=== PATIENT | female | born 2000 | race Caucasian/White ===

== ENCOUNTER 2024-09-07 08:47 | Emergency (ER) | payer BC, MEDICAID, SELFPAY ==
[2024-09-07 09:16] VITALS: BP 114/77; PULSE 98; RESP 14; TEMP 36.8; O2SAT 96; BMI 29.0
--- NOTE | 2024-09-07 09:58 | USR_ITS ---
PROCEDURE INFORMATION: Exam: US , Transvaginal Exam date and time: 09/07/2024 11:11 AM Age: 22 years old Clinical indication: Lmp or gestational age (in weeks): 6w3d; Antepartum complications; Bleeding; ; Additional info: Pelvic pain and vag bleeding, does not have confirmed iup; Lmp jul 23 LABS AND CLINICAL REPORTS: Gestational age (Established): 6 w 4 d Estimated due date (Established): 04/29/2025 TECHNIQUE: Imaging protocol: Real-time transvaginal obstetrical ultrasound of the maternal pelvis with image documentation. Transvaginal imaging was used for better evaluation of the fetus, adnexa, and/or cervix. COMPARISON: No relevant prior studies available. FINDINGS: Single, live intrauterine gestation with heart rate of 125 bpm. The crown-rump length is 6.4 mm; this corresponds to a gestational age of 6 weeks, 3 days. A yolk sac is seen and measures 2.9 mm. The cervix is closed and measures 3 cm in length. There is trace fluid in the endocervical canal. Small subchorionic hemorrhage measuring 0.4 x 0.4 x 0.8 cm. The right ovary measures 2.5 x 2.1 x 1.5 cm. No suspicious lesion is seen in the right ovary. The left ovary measures 3.3 x 1.9 x 2.3 cm. No suspicious lesion is seen in the left ovary. Doppler interrogation of the ovaries reveals arterial and venous blood flow, bilaterally. There is mild free pelvic fluid. US/US OB <=14 wk fetus w transvag IMPRESSION: 1. Single, live intrauterine gestation with estimated gestational age by measurement of 6 weeks, 3 days. 2. Small subchorionic hemorrhage. Trace fluid in the endocervical canal. 3. Mild free pelvic fluid.
--- NOTE | 2024-09-07 09:59 | W.ED.PREGNAN ---
HPI - General: Chief complaint: Vaginal Bleeding Stated complaint: 6 wks , bleeding & cramping Time Seen by Provider: 09/07/24 09:16 History of Present Illness: 22-year-old female reports she is approximately 6 weeks with an LMP of July 23. She reports she had her first test on August 26, 2024. Patient reports she did have sexual intercourse last night. This morning when she woke up she was having new vaginal bleeding. She reports it is more than a menstrual cycle. It went through her pad and onto her pants. Patient reports she does feel little lightheaded and dizzy. Past medical history is notable for what she believes to be allergic reactions. She periodically gets hives and gets lightheaded. She has had several presyncopal and syncopal episodes related to these episodes. She is wearing a heart monitor from her primary care doctor. She is scheduled to have allergy testing. Patient reports she intermittently has had nausea and vomiting although has not been worse than usual. No fever. No urinary symptoms. Date of Last Menstrual Period: 07/23/24 Associated symptoms: Deny dysuria, headache(s) or syncope Related Data Home Medications Medication Instructions Recorded Confirmed cetirizine 10 mg tablet 10 mg PO DAILY PRN ALLERGIES 09/07/24 09/07/24 famotidine 40 mg tablet 40 mg PO DAILY 09/07/24 09/07/24 fish oil-vit E-fat acids 1 cap PO DAILY 09/07/24 09/07/24 comb.5-herbal comb. 137 400 mg-5 unit capsule (Flax, Fish and Borage Oil) vitamin with calcium 1 tab PO DAILY 09/07/24 09/07/24 no.72-iron 27 mg-folic acid 1 mg tablet ( Vitamins Plus Low Iron) sucralfate 1 gram tablet 1 g PO QID 09/07/24 09/07/24 Allergies Allergy/AdvReac Type Severity Reaction Status Date / Time No Known Allergies Allergy Verified 09/07/24 09:26 Review of Systems General: Reports: 10 or more systems reviewed and unremarkable except in HPI and below Const: Denies: fever(s), chills or body aches Eyes: Reports: change in vision ENMT: Denies: throat pain Card: Denies: chest pain, edema or syncope Resp: Denies: dyspnea or productive cough GI: Denies: diarrhea : Denies: flank pain, dysuria or urinary frequency Musc: Denies: neck pain, back pain, extremity pain or extremity swelling Skin/Breast: Denies: rash or erythema Neuro: Denies: headache(s), numbness in extremities, weakness in extremities, lack of coordination or difficulty walking [facility] Female Reproductive History: Date of last menstrual period: 07/23/24 Physical Exam Narrative: EXAM NARRATIVE: Alert, oriented, conversational. Cheeks are flushed. Heart rate is in the 90s. There is tenderness in the pelvic region with mild guarding. No distention. Const: COMMON NORMALS: no limitations, alert and well nourished EXAM LIMITATIONS: no altered mental status HENMT: COMMON NORMALS: normocephalic, atraumatic and external ears normal HEAD & SCALP: normocephalic and atraumatic EXTERNAL EAR: Yes external ears normal MOUTH: no muffled voice Eye: COMMON NORMALS: EOMs intact bilaterally, conjunctivae normal and no scleral icterus CONJUNCTIVA: Yes conjunctivae normal Neck/C-Spine: GENERAL: Yes normal visual inspection and Yes trachea midline Resp: COMMON NORMALS: normal respiratory effort, No use of accessory muscles and clear to auscultation bilaterally AUSCULTATION: clear to auscultation bilaterally Cardio: COMMON NORMALS: regular rate and regular rhythm RATE: regular rate RHYTHM: regular rhythm GI: COMMON NORMALS: Soft to palpation PALPATION: Yes Soft to palpation Extremity: COMMON NORMALS: normal to inspection Neuro: COMMON NORMALS: moves all extremities, no focal motor deficits and no sensory deficits noted SENSORIUM/ORIENTATION: Yes alert SPEECH: speech normal Psych: COMMON NORMALS: mental status grossly normal, Normal thought process present, cooperative, normal affect and speech normal SPEECH: Yes normal speech THOUGHT PROCESS: Normal thought process present Skin: COMMON NORMALS: turgor normal and no jaundice GENERAL SKIN EXAM: turgor normal Course Vital Signs: Vital signs: Vital Signs Temperature 98.2 F 09/07/24 09:16 Pulse Rate 66 09/07/24 10:55 Respiratory Rate 14 09/07/24 09:16 Blood Pressure 114/77 09/07/24 09:16 Pulse Oximetry 96 09/07/24 10:55 Oxygen Delivery Me thod Room Air 09/07/24 10:55 MDM - OB/Uterine Contractions Medical Decision Making Differential diagnosis includes threatened miscarriage, subchorionic hemorrhage, cervical bleeding after intercourse, miscarriage, ectopic , anemia, other. We will obtain urinalysis, quantitative hCG, CBC, BMP, ABO and Rh and then obtain an ultrasound OB less than 14 weeks to evaluate adnexa and uterus. Update Hemoglobin 14.3, platelets 246,000. CMP nonactionable. UA no UTI. hCG quantitative 16,644 Blood type a positive Preliminary results of the ultrasound show a live IUP with heart rate in the 120s, approximately 6 weeks 2 days gestational age with a gestational date of 9 4. There was a subchorionic hemorrhage noted. Official read per radiology. Patient is stable for discharge. Nothing in the vagina. Continue usual care and follow-up later this week for trending hCG. RhoGAM not indicated due to the patient being Rh+ Bleeding has improved and patient stable for DC Lab Data 09/07/24 09:48 09/07/24 09:48 Laboratory Results WBC 13.25 10^3/uL (3.29-11.43) H 09/07/24 09:48 RBC 4.82 10^6/uL (3.85-5.65) 09/07/24 09:48 Hgb 14.30 g/dL (11.27-16.99) 09/07/24 09:48 Hct 41.6 % (36-47) 09/07/24 09:48 MCV 86.3 fl (85-98) 09/07/24 09:48 MCH 29.7 pg (27-33) 09/07/24 09:48 MCHC 34.4 g/dL (30-55) 09/07/24 09:48 RDW 12.2 % (12.1-15.1) 09/07/24 09:48 Plt Count 246 10^3/cmm (157-399) 09/07/24 09:48 MPV 10.8 fL (7.4-10.4) H 09/07/24 09:48 Neut % (Auto) 86.0 % 09/07/24 09:48 Lymph % (Auto) 7.6 % 09/07/24 09:48 [place] % (Auto) 5.5 % 09/07/24 09:48 Eos % (Auto) 0.2 % 09/07/24 09:48 Baso % (Auto) 0.3 % 09/07/24 09:48 Neut # (Auto) 11.39 10^3/uL (1.8-7.7) H 09/07/24 09:48 Lymph # (Auto) 1.0 10^3/uL (0.8-4.8) 09/07/24 09:48 [place] # (Auto) 0.7 10^3/uL (0.2-0.9) 09/07/24 09:48 Eos # (Auto) 0.0 10^3/uL (0.0-0.8) 09/07/24 09:48 Baso # (Auto) 0.0 10^3/uL (0.0-0.1) 09/07/24 09:48 Nucleated RBC % (auto) 0 % 09/07/24 09:48 Nucleated RBCs # 0.0 /100WBC 09/07/24 09:48 Sodium 135 mmol/L (136-145) L 09/07/24 09:48 Potassium 3.9 mmol/L (3.5-5.1) 09/07/24 09:48 Chloride 101 mmol/L (98-107) 09/07/24 09:48 Carbon Dioxide 21 mmol/L (22-29) L 09/07/24 09:48 Anion Gap 16.9 (5-19) 09/07/24 09:48 BUN 8 mg/dL (6-20) 09/07/24 09:48 Creatinine 0.7 mg/dL (0.5-0.9) 09/07/24 09:48 GFR Calculation 105.6 mL/min (90-130) 09/07/24 09:48 Glucose 107 mg/dL (65-115) 09/07/24 09:48 Calculated Osmolality 279 mOsm/kg (285-295) L 09/07/24 09:48 Calcium 9.0 mg/dL (8.5-10.5) 09/07/24 09:48 Ser , Semi-Qnt 02362.00 mIU/mL 09/07/24 09:48 Urine Color Yellow (Yellow) 09/07/24 10:16 Urine Appearance Clear (CLEAR) 09/07/24 10:16 Urine pH 7.5 (5-7) 09/07/24 10:16 Ur Specific [place] 1.005 (1.005-1.030) 09/07/24 10:16 Urine Protein Negative (Negative) 09/07/24 10:16 Urine Glucose (UA) Negative (Normal) 09/07/24 10:16 Urine Ketones Trace (Negative) 09/07/24 10:16 Urine Blood 2+ (Negative) A 09/07/24 10:16 Urine Nitrate Negative (Negative) 09/07/24 10:16 Urine Bilirubin Negative (Negative) 09/07/24 10:16 Urine Urobilinogen 0.2 mg/dL (Negative) 09/07/24 10:16 Ur Leukocyte Esterase Negative (Negative) 09/07/24 10:16 Urine RBC 3-5 /hpf (0-2) 09/07/24 10:16 Urine WBC 0-5 /hpf (0-5) 09/07/24 10:16 Ur Squamous Epith Cells 0-5 /hpf (0-5) 09/07/24 10:16 Amorphous Sediment Not Reportable 09/07/24 10:16 Urine Bacteria None seen /hpf (NONE) 09/07/24 10:16 Hyaline Casts 0-4 /lpf H 09/07/24 10:16 Blood Type A Positive 09/07/24 09:48 Rho(D) Type Rh positive 09/07/24 09:48 XR interpretation done by ED provider, pending radiology final review Discharge Plan Discharge Patient Disposition: Home Clinical Impression: Subchorionic hematoma in first trimester, First trimester bleeding, Rh(D) positive Condition: Stable Prescriptions: No Action cetirizine 10 mg tablet 10 mg PO DAILY PRN (Reason: ALLERGIES) sucralfate 1 gram tablet 1 g PO QID famotidine 40 mg tablet 40 mg PO DAILY Flax, Fish and Borage Oil 400-5 mg-unit Capsule 1 cap PO DAILY Vitamin Plus Low Iron 27 mg iron- 1 mg tablet 1 tab PO DAILY Discharge Orders: Discharge ED (Routine); Ordered 09/07/24 Ordered By: Bo Copeland Patient Instructions: Threatened Miscarriage (ED) Activity Restrictions/Additional Instructions: Vaginal bleeding the first trimester is relatively common but is not considered normal. You are not anemic. Your blood type is a positive. Your hCG level today on September 07 is 16,644. He will need to have this repeated later in the week to make sure it is trending in the right direction. Your ultrasound preliminary results show a live intrauterine with a gestational age of around 6 weeks and 2 days which would make your gestational date April 30. This will be over read by the radiologist send any significant differences will be reported to you. Please continue to take your vitamin, avoid toxins, and live a healthy low stress lifestyle. Avoid anything in the vagina until cleared by your [employer] Return to the emergency department if you have severe pain, fever, heavy bleeding, or other urgent concerns Coding Level of Care Code ED Esthetic Dermatologist for [place]
[2024-09-07 10:04] LABS: Basophils % 0.3 %; Eosinophils % 0.2 %; Hematocrit 41.6 % (36-47); Lymphocytes % 7.6 %; Mean Corpuscular HGB Conc 34.4 g/dL (30-55); Mean Corpuscular Hemoglobin 29.7 pg (27-33); Mean Corpuscular Volume 86.3 fl (85-98); Mean Platelet Volume 10.8 fL (7.4-10.4); Monocytes # 0.7 10^3/uL (0.2-0.9); Monocytes % 5.5 %; Neutrophils # 11.39 10^3/uL (1.8-7.7); Nucleated Red Blood Cells % 0 %; Platelet Count 246 10^3/cmm (157-399); Red Blood Count 4.82 10^6/uL (3.85-5.65); Red Cell Distribution Width 12.2 % (12.1-15.1); White Blood Count 13.25 10^3/uL (3.29-11.43)
[2024-09-07 10:17] LABS: Anion Gap 16.9 (5-19); Blood Urea Nitrogen 8 mg/dL (6-20); Carbon Dioxide 21 mmol/L (22-29); Chloride 101 mmol/L (98-107); Creatinine Clr Calc Pharmacy 118.2259; Glomerular Filtration Rate 105.6 mL/min (90-130); Glucose 107 mg/dL (65-115); Osmolality Calculated 279 mOsm/kg (285-295); Potassium 3.9 mmol/L (3.5-5.1); Sodium 135 mmol/L (136-145)
[2024-09-07 10:55] VITALS: PULSE 66; O2SAT 96
[2024-09-07 10:58] LABS: Bilirubin Urine Negative (Negative); Blood Urine 2+ (Negative); Glucose Urine UA Negative (Normal); Ketones Urine Trace (Negative); Leukocyte Esterase Urine Negative (Negative); Nitrate Urine Negative (Negative); Protein Urine Negative (Negative); Specific Gravity, Urine 1.005 (1.005-1.030); Urine Appearance Clear (CLEAR); Urine Color Yellow (Yellow); Urobilinogen Urine 0.2 mg/dL (Negative); pH Urine 7.5 (5-7)
[2024-09-07 11:03] LABS: Add Urine Microscopic? YES; Bacteria Urine None Seen /hpf; Hyaline Casts Urine 0-4 /lpf; Squamous Epithelial Cell Urine 0-5 /hpf (0-5); WBC Urine 0-5 /hpf (0-5)
== END 2024-09-07 12:04 | disposition home or self-care (01) ==
PROVIDERS: Emergency Provider Emergency Medicine
DX: O43.891 Other placental disorders, first trimester (principal); Z3A.01 Less than 8 weeks gestation of pregnancy
CPT/HCPCS: 76801; 76817; 80048; 81001; 84702; 85025; 86900; 99284